=== PATIENT | female | born 1950 | race Caucasian/White ===

== ENCOUNTER → 2018-03-19 10:13 | Outpatient (CLI) | payer OTHER, SELFPAY ==
[2018-03-19 10:17] LABS: Bacteria 0 SEEN /hpf (None Seen); Mucous, Urine 0 SEEN /hpf (<or=2+)
[2018-03-19 10:18] LABS: Color, Urine Yellow (Yellow); Glucose, Dipstick Normal (Normal); Ketone-Dipstick Negative (Negative); Leukocyte Esterase-Dipstick 500 /ul (Negative); Nitrite-Dipstick Negative (Negative); Occult Blood-Urine 250 /ul (Negative); Protein-Dipstick Negative (Negative); Specific Gravity, Urine 1.005 (1.002-1.030); Urine Bilirubin Dipstick Negative (Negative); Urine Clarity Sl. Cloudy (Clear); Urine Urobilinogen Normal (Normal)
[2018-03-19 10:23] LABS: Red Blood Cells-Urine 25-50 SEEN /hpf (0-5); Squamous Epithelial Cells - UA 0-5 SEEN /hpf (5-10); White Blood Cells 25-50 SEEN /hpf (0-5)
== END ==
PROVIDERS: Referring Provider Nurse Practitioner Family; Visit Provider Nurse Practitioner Family
DX: R30.0 Dysuria (principal)
CPT/HCPCS: 81001; 87086; 87088

== ENCOUNTER → 2019-01-19 10:05 | Outpatient (CLI) | payer OTHER, SELFPAY ==
[2019-01-19 09:44] VITALS: BMI 20.5
[2019-01-19 12:35] LABS: ALB/GLOB Ratio 1.2 RATIO (0.9-2.4); AST(SGOT) 27 U/L (15-37); Alanine Aminotransfer ALT/SGPT 26 U/L (13-56); Albumin, Serum 3.7 g/dL (3.2-5.0); Alkaline Phosphatase 55 U/L (45-117); Anion Gap 0 (5-15); BUN 16 mg/dL (7-18); BUN/Creat Ratio 17.5 RATIO (10-20); Calcium,Total 9.2 mg/dL (8.5-10.1); Chloride 102 mmol/L (98-107); Cholesterol 182 mg/dL (200); Creatinine, Serum 0.92 mg/dL (0.55-1.02); EST Glomerular Filtration Rate 65 mL/min (>60); Est Glom Filt Rate - Afr Amer 79 mL/min (>60); Glucose 100 mg/dL (74-106); High Density Lipoprotein 74 mg/dL; Potassium 5.2 mmol/L (3.5-5.1); Protein, Total 6.7 g/dL (6.4-8.2); Sodium Level 137 mmol/L (136-145); Triglycerides 87 mg/dL; Very Low Density Lipoprotein 17 mg/dL (5-40)
== END ==
PROVIDERS: Visit Provider Family Medicine
DX: Z00.00 Encounter for general adult medical examination without abnormal findings (principal)
CPT/HCPCS: 36415; 80053; 80061

== ENCOUNTER → 2019-11-08 | Outpatient (CLI) | payer OTHER, SELFPAY ==
[2019-11-08 14:24] VITALS: BMI 20.5
[2019-11-08 16:20] LABS: Bacteria 0 SEEN /hpf (None Seen); Mucous, Urine 0 SEEN /hpf (<or=2+); Red Blood Cells-Urine 0 SEEN /hpf (0-5); Squamous Epithelial Cells - UA 0 SEEN /hpf (5-10)
[2019-11-08 16:47] LABS: Color, Urine Yellow (Yellow); Glucose, Dipstick Normal (Normal); Ketone-Dipstick Negative (Negative); Leukocyte Esterase-Dipstick 100 /ul (Negative); Nitrite-Dipstick Negative (Negative); Occult Blood-Urine 250 /ul (Negative); Protein-Dipstick Negative (Negative); Urine Bilirubin Dipstick Negative (Negative); Urine Clarity Sl. Cloudy (Clear); Urine Urobilinogen Normal (Normal)
[2019-11-08 16:56] LABS: White Blood Cells 0-5 SEEN /hpf (0-5)
== END | disposition home or self-care (01) ==
LOC: LABSPEC 15:52
PROVIDERS: PCP Family Medicine; Referring Provider Family Medicine; Visit Provider Family Medicine
DX: R30.0 Dysuria (principal)
CPT/HCPCS: 81001; 87086; 87088

== ENCOUNTER → 2020-01-24 08:56 | Outpatient (CLI) | payer OTHER, SELFPAY ==
[2020-01-24 08:35] VITALS: BMI 20.5
[2020-01-24 12:54] LABS: ALB/GLOB Ratio 1.2 RATIO (0.9-2.4); AST(SGOT) 25 U/L (15-37); Alanine Aminotransfer ALT/SGPT 29 U/L (13-56); Albumin, Serum 3.9 g/dL (3.2-5.0); Alkaline Phosphatase 55 U/L (45-117); Anion Gap 3 (5-15); BUN 14 mg/dL (7-18); BUN/Creat Ratio 16.1 RATIO (10-20); Calcium,Total 9.2 mg/dL (8.5-10.1); Chloride 102 mmol/L (98-107); Creatinine, Serum 0.87 mg/dL (0.55-1.02); EST Glomerular Filtration Rate 69 mL/min (>60); Est Glom Filt Rate - Afr Amer 83 mL/min (>60); Globulin 3.3 g/dL (2.2-4.2); Glucose 87 mg/dL (74-106); Potassium 4.8 mmol/L (3.5-5.1); Protein, Total 7.2 g/dL (6.4-8.2); Sodium Level 139 mmol/L (136-145)
== END ==
PROVIDERS: PCP Family Medicine; Referring Provider Family Medicine; Visit Provider Family Medicine
DX: Z00.00 Encounter for general adult medical examination without abnormal findings (principal)
CPT/HCPCS: 36415; 80053

== ENCOUNTER → 2020-03-02 | Outpatient (CLI) | payer OTHER, SELFPAY ==
[2020-03-02 10:04] VITALS: BMI 20.5
[2020-03-02 13:23] LABS: Mucous, Urine 0 SEEN /hpf (<or=2+)
[2020-03-02 13:47] LABS: Color, Urine Yellow (Yellow); Glucose, Dipstick Normal (Normal); Ketone-Dipstick Negative (Negative); Leukocyte Esterase-Dipstick 500 /ul (Negative); Nitrite-Dipstick Negative (Negative); Occult Blood-Urine 250 /ul (Negative); Protein-Dipstick 30 mg/dl (Negative); Urine Bilirubin Dipstick Negative (Negative); Urine Clarity Sl. Cloudy (Clear); Urine Urobilinogen Normal (Normal)
[2020-03-02 13:58] LABS: Bacteria 1+ /hpf (None Seen); Red Blood Cells-Urine 25-50 SEEN /hpf (0-5); Squamous Epithelial Cells - UA 0-5 SEEN /hpf (5-10); White Blood Cells 25-50 SEEN /hpf (0-5)
== END | disposition home or self-care (01) ==
LOC: LABSPEC 13:05
PROVIDERS: PCP Family Medicine; Referring Provider Physician Assistant Surgical; Visit Provider Physician Assistant Surgical
DX: R30.0 Dysuria (principal)
CPT/HCPCS: 81001; 87077; 87086; 87088; 87186

== ENCOUNTER → 2020-03-08 08:51 | Outpatient (CLI) | payer OTHER, SELFPAY ==
[2020-03-02 10:04] VITALS: BMI 20.5
[2020-03-08 12:11] LABS: Vitamin D,25 Hydroxy 45.1 ng/mL
== END ==
PROVIDERS: PCP Family Medicine; Visit Provider Family Medicine
DX: M85.80 Other specified disorders of bone density and structure, unspecified site (principal)
CPT/HCPCS: 36415; 82306

== ENCOUNTER → 2021-01-24 10:46 | Outpatient (CLI) | payer OTHER, SELFPAY ==
[2021-01-24 10:25] VITALS: BMI 20.5
[2021-01-24 12:45] LABS: ALB/GLOB Ratio 1.3 RATIO (0.9-2.4); AST(SGOT) 27 U/L (15-37); Alanine Aminotransfer ALT/SGPT 32 U/L (13-56); Albumin, Serum 4.3 g/dL (3.2-5.0); Alkaline Phosphatase 57 U/L (45-117); Anion Gap 6 (5-15); BUN 17 mg/dL (7-18); BUN/Creat Ratio 21.1 RATIO (10-20); Calcium,Total 9.7 mg/dL (8.5-10.1); Chloride 105 mmol/L (98-107); EST Glomerular Filtration Rate 75 mL/min (>60); Est Glom Filt Rate - Afr Amer 91 mL/min (>60); Globulin 3.4 g/dL (2.2-4.2); Glucose 104 mg/dL (74-106); Potassium 4.7 mmol/L (3.5-5.1); Protein, Total 7.7 g/dL (6.4-8.2); Sodium Level 142 mmol/L (136-145)
[2021-01-24 12:46] LABS: Vitamin D,25 Hydroxy 93.5 ng/mL
== END ==
PROVIDERS: PCP Family Medicine; Referring Provider Family Medicine; Visit Provider Family Medicine
DX: Z00.00 Encounter for general adult medical examination without abnormal findings (principal)
CPT/HCPCS: 36415; 80053; 82306

== ENCOUNTER → 2022-02-26 | Outpatient (CLI) | payer OTHER, SELFPAY ==
[2022-02-26 16:04] LABS: Vitamin D,25 Hydroxy 97.5 ng/mL
[2022-02-26 16:05] LABS: ALB/GLOB Ratio 1.2 RATIO (0.9-2.4); AST(SGOT) 29 U/L (15-37); Alanine Aminotransfer ALT/SGPT 31 U/L (13-56); Albumin, Serum 4.1 g/dL (3.2-5.0); Alkaline Phosphatase 58 U/L (45-117); Anion Gap 6 (5-15); BUN 23 mg/dL (7-18); Chloride 104 mmol/L (98-107); Cholesterol 232 mg/dL (200); Creatinine, Serum 0.88 mg/dL (0.55-1.02); EST Glomerular Filtration Rate 67 mL/min (>60); Est Glom Filt Rate - Afr Amer 82 mL/min (>60); Globulin 3.4 g/dL (2.2-4.2); Glucose 97 mg/dL (74-106); High Density Lipoprotein 77 mg/dL; Potassium 4.9 mmol/L (3.5-5.1); Protein, Total 7.5 g/dL (6.4-8.2); Sodium Level 140 mmol/L (136-145); Triglycerides 90 mg/dL; Very Low Density Lipoprotein 18 mg/dL (5-40)
== END | disposition home or self-care (01) ==
LOC: BIMLAB 14:30
PROVIDERS: PCP Family Medicine; Referring Provider Family Medicine; Visit Provider Family Medicine
DX: Z00.00 Encounter for general adult medical examination without abnormal findings (principal)
CPT/HCPCS: 36415; 80053; 80061; 82306

== ENCOUNTER → 2022-05-22 | Outpatient (CLI) | payer OTHER, SELFPAY ==
--- NOTE | 2022-05-22 | CYST_PTH ---
PATIENT: JACKIE NARANJO LOC: [facility] U#:[id number] AGE/SX: 71/F ROOM: RE05/22/[address]: Dr. Mack Polo DO : 1950 BED: DIS: 05/22/2022 SPEC #: [id number] RECD: 05/22/22 12:09 STATUS: KATHLEEN GELACIO #: [id number] NADIA: 05/22/22 00:[address]: Mack Polo DEPT: SURGICAL PATHOLOGY RECD BY: Ascencion Gamez Tissues: CYST Procedures: Surgery Specimen Level III HEADER OPERATION: Lesion removal from left anterior moreno PRE-OP DIAGNOSIS: Dermoid inclusion cyst TISSUE SUBMITTED: Left anterior moreno lesion MICROSCOPIC DIAGNOSIS Left anterior skin lesion, shave biopsy: Atypical squamous lesion suspicious for squamous cell carcinoma. See comment. AM:rosemarie 05/23/2022 COMMENT The lesion extends to the deep margin of excision. Complete excision of lesion is recommended for definitive classification. MICROSCOPIC DESCRIPTION Slides are reviewed. GROSS DESCRIPTION Received is one container labeled with the patient's name and not further designated. The specimen consists of a light clinton shaved biopsy of skin measuring 0.7 x 0.6 x 0.2 cm. The specimen is totally submitted in one cassette after sectioning. / AM:rosemarie 05/22/2022 TC:? CPT: 26437
== END | disposition home or self-care (01) ==
LOC: LABSPEC 10:31
PROVIDERS: PCP Family Medicine; Referring Provider Family Medicine; Visit Provider Family Medicine
DX: L72.0 Epidermal cyst (principal)
CPT/HCPCS: 88304

== ENCOUNTER 2022-07-04 07:26 | Day surgery (SDC) | payer OTHER, SELFPAY ==
--- NOTE | 2022-07-03 23:51 | HP.PCM_ITS ---
History and Physical Date of Admission: 07/04/22 HISTORY OF PRESENT ILLNESS 71 year old female presents for evaluation for TBSE.? She noticed a lesion on her left anterior leg that had increased in size over the last several months and was erythematous in color. ? She had a shave biopsy on 05/22/22 by her PCP, Dr. Polo, which showed atypical squamous lesion suspicious for squamous cell carcinoma which extends into the deep margin.? The shave biopsy site is healing without problems.? She presents today to discuss her options for treatment. PAST MEDICAL HISTORY Family history of breast cancer Family history of skin cancer Frequent UTI Menieres disease Osteopenia Squamous cell carcinoma of left lower leg PAST SURGICAL HISTORY History of breast biopsy History of colonoscopy ALLERGIES No Known Allergies MEDICATIONS Saccharomyces boulardii (Daily Probiotic (S. boulardii)) ascorbate calcium-bioflavonoid ER bone up cholecalciferol (vitamin D3) vitamin FAMILY HISTORY Father - Anesthesia complication, Heart disease, Melanoma, Diabetes, Skin cancer Mother - Arthritis, Hypertension, Osteoporosis, Thyroid disorder, Skin cancer Sister - Breast cancer, Cervical cancer Other - Family history of breast cancer, Family history of skin cancer SOCIAL HISTORY Smoking Status:? Never smoker alcohol intake:? never substance use type:? does not use REVIEW OF SYSTEMS General - Denies fever, fatigue, and weight loss. Eyes - Denies cataracts and glaucoma. ENT - Denies nasal congestion and sore throat.? Endocrine - Denies excessive thirst and urination.? Has family history of breast cancer. Skin - Has a lesion on left anterior leg that was biopsied 05/22/22 and showed atypical squamous lesion suspicious for squamous cell carcinoma which extends into the deep margin.? Has family history of skin cancer. Musculoskeletal - Denies joint pain, joint stiffness, weakness of muscles and joints, back pain, and arthritis. Has osteopenia.? Neuro - Denies headaches. Has history of Meniere's disease on 2015. Cardiovascular - Denies chest pain, fatigue, and shortness of breath with exertion. Psych - Denies anxiety and depression. Respiratory - Denies chronic cough and shortness of breath.? Gastrointestinal - Denies nausea, vomiting, diarrhea, and constipation.? Hematologic - Denies abnormal bruising and bleeding.? Genitourinary - Denies hematuria.? Has urinary frequency but states she drinks a lot. PHYSICAL EXAMINATION General - Alert and oriented. HEENT - PERRL. EOMI. Throat is clear.? No suspicious lesions noted. Neck - Supple and non-tender.? No cervical adenopathy.? No suspicious lesions noted. Lungs- Clear to auscultation.? Heart - Regular rate and rhythm.? Abdomen - Soft and non distended.? Extremities - FROM. No axillary adenopathy.? Radial pulses are palpable. No inguinal adenopathy.? Dorsalis pedis pulses are palpable.? On the left anterior leg is a healing shave biopsy site that measures 1 x 0.7 cm.? No ulceration.? Lesion is nontender.? No other suspicious lesions noted. Neuro - CN II-XII grossly intact.? Psych - Normal mood and affect.? ASSESSMENT 1.? 1 cm atypical squamous lesion suspicious for squamous cell carcinoma left anterior leg. 2.? Family history of skin cancer. PLAN Discussed with the patient that this is an atypical squamous lesion suspicious for squamous cell carcinoma.? The pathology report shows the deep margin is positive which would suggest that there is invasion which is why there is suspicion for squamous cell carcinoma.? ? Recommend operative intervention with full thickness excision of this lesion.? Generally would send it to Pathology for analysis to rule out carcinoma.? Generally, if carcinoma is present or if suspicion for carcinoma is present then further excision will be done with a margin in all directions.? Reconstruction will be with skin grafting.? If no carcinoma is seen on frozen section, then would still need a skin graft for reconstruction but not as large.? Since sometimes evidence of invasion may be present on the permanent pathology but not on the frozen section.? So my recommendation would be to treat this as an invasive squamous cell carcinoma which would necessitate a 6 mm margin in all directions.? The size of the skin graft on the leg is not as big of an inconvenience as compared to having to go back to the operating room if a smaller margin is used and the final pathology comes back as invasive cancer.? If the lesion was on the face, I would leave the wound open until the final pathology is available.? A second procedure would be necessary for re-excision for margin with reconstruction with a skin flap. Patient voiced understanding and was in agreement with this surgical plan. Surgery would be done under local anesthesia and IV sedation on an outpatient basis. Patient was informed of the risks and complications of the procedure including alternatives to surgery.? These were discussed with the patient personally.? Patient voices understanding and wishes to proceed. Some of the risks and complications were included in a form from the [employer]. Assessment & Plan Assessment/Plan (1) Squamous cell carcinoma of left lower leg: (2) Family history of skin cancer:
[2022-07-04] VITALS (7 sets, daily range): BP systolic 108–127; BP diastolic 58–68; PULSE 62–77; RESP 16–18; TEMP 36.4–37; O2SAT 94–100; BMI 20.1
--- NOTE | 2022-07-04 | LES_PTH ---
PATIENT: JACKIE NARANJO [place] [facility] [place][id number] AGE/SX: 71/F ROOM: RE07/04/[address]: Dr. Collin Crowder MD : 1950 BED: DIS: 07/04/2022 SPEC #: [id number] RECD: 07/04/22 09:42 STATUS: KATHLEEN RESammy #: [id number] NADIA: 07/04/22 00:[address]: Collin Crowder DEPT: SURGICAL PATHOLOGY RECD BY: Hiwot Sarmiento ENTERED: 07/04/22 10:52 SP TYPE: Lesion OTHR DR: Dr. Mack Polo, DO Tissues: Skin of leg, NOS Procedures: Frozen Section (charge) Surgery Specimen Level IV HEADER OPERATION: Excision atypical keratosis anterior leg with skin grafting PRE-OP DIAGNOSIS: Squamous cell carcinoma of left lower leg TISSUE SUBMITTED: Left lower leg squamous lesion suspicious, FS FROZEN SECTION DIAGNOSIS Left leg (lower) lesion, biopsy: Actinic keratosis, negative for invasive carcinoma. SJ:rosemarie 07/04/2022 MICROSCOPIC DIAGNOSIS Skin of left lower leg lesion, biopsy: Actinic change. Focal hyperkeratosis. Cicatrix with superficial chronic dermatitis. Mid dermal keratin-like material. No evidence of malignancy. See comment. AM:rosemarie 07/07/2022 COMMENT The keratin-like material may represent a foreign body. Clinical correlation is suggested. Case has been reviewed in consultation with Dr. Parsons who concurs with the above diagnosis. IDC:GUDELIA MICROSCOPIC DESCRIPTION Slides are reviewed. GROSS DESCRIPTION Received fresh for frozen section diagnosis labeled with the patient's name is a specimen designated left leg (lower) lesion. The specimen consists of a round piece of clinton-white skin measuring 1.7 x 1.5 x 0.2 cm. The specimen is oriented by a suture at 12 o?clock. The specimen is inked as follows: 12 to 3 o?clock ? black, 3 to 6 o?clock ? blue, 6 to 9 o?clock ? green, 9 to 12 o?clock ? yellow. The specimen is serially sectioned and submitted entirely for frozen section diagnosis in one cassette. / GUDELIA:rosemarie 07/04/2022 TC:5 CPT: 19667, 59185
[2022-07-04] MEDS: Lactated Ringers 1,000 ML 15 ML IV ×2 (08:14→10:30)
[2022-07-04] MEDS: Cefazolin 2 GM in 0.9% Normal Saline 100 ML IV (09:07)
[2022-07-04] MEDS: Lidocaine 1% /Epi 1:100 (20ml) 20 ML Vial (09:50)
[2022-07-04] MEDS: Mupirocin Ointment 22gm Tube 1 APPLIC (10:21)
--- NOTE | 2022-07-04 10:24 | PCM.OPRPT ---
Problems Associated Problem List Diagnoses (1) Actinic keratosis: (2) Family history of skin cancer: Report of Operation Date of Procedure: 07/04/22 Pre-Operative Diagnosis: 1. 1 cm atypical squamous lesion suspicious for squamous cell carcinoma left anterior leg. 2. Family history of skin cancer. Post-Operative Diagnosis: 1. 1 cm actinic keratosis with atypia left anterior leg. 2. Family history of skin cancer. Surgery/Procedure Performed:: Excision 1 cm actinic keratosis with atypia left anterior leg with STSG reconstruction from left flank (6.25 cm2). Description of Surgical Findings:: 71 year old female presents for evaluation for TBSE.? She noticed a lesion on her left anterior leg that had increased in size over the last several months and was erythematous in color. ? She had a shave biopsy on 05/22/22 by her PCP, Dr. Polo, which showed atypical squamous lesion suspicious for squamous cell carcinoma which extends into the deep margin.? The shave biopsy site is healing without problems.? She presents today to discuss her options for treatment. Patient was informed of the risks and complications of the procedure including alternatives to surgery. These were discussed with the patient personally. Patient voices understanding and wishes to proceed. Some of the risks and complications were included in a form from the [employer]. Frozen section left anterior leg - actinic keratosis and no carcinoma seen. Initial shave biopsy on 05/22/22 showed atypia. Size of skin graft left anterior leg - 2.5 x 2.5 cm. I used AxioFill Placental Connective Tissue Powder, (250 mg). Catalog Number - [id number]. Lot Number - [id number]. Expiration - January 20, 2027. Surgeon: Collin Crowder MD supervisor feed house: Padmini Beck RNFA Type of Anesthesia: Local MAC (xylocaine with epinephrine and IV sedation.) Anesthesiologist: Óscar Gilliam MD and Aurea Palacios CRNA Specimen's removed: Atypical squamous lesion left anterior leg to Pathology as a frozen section. Drains: None. Estimated Blood Loss (mL): 5. Description of Procedure: Patient was taken to OR in supine position and was given IV sedation. The left leg and left flank areas were prepped and draped in the usual fashion. SCD was placed on the right leg for DVT prophylaxis. Perioperative antibiotics were given intravenously. The atypical lesion left anterior leg and the left flank areas were infiltrated with xylocaine and epinephrine. After waiting 5 minutes for the anesthetic to take effect, I marked out a 6 mm margin in all directions around the atypical lesion left anterior leg because of suspicion of squamous cell carcinoma. A circular incision was made over the previous lesion shave biopsy site into the subcutaneous tissue. A suture was marked at the 12 oclock position for pathology orientation. The lesion was sent to Pathology as a frozen section for analysis to rule out carcinoma. Frozen section showed an actinic keratosis and no carcinoma seen. The initial shave biopsy on 05/22/22 showed an atypical squamous lesion suspicious for squamous cell carcinoma. The size of the wound left anterior leg to be skin grafted was 2.5 x 2.5 cm or 6.25 cm2. Using a fresh scalpel, I made an oblique elliptical incision in the left flank for the donor site for the skin graft. I removed the subcutaneous tissue from the underside of the dermis and included some of the dermis as well, thus making it a thick split thickness skin graft. The skin graft was placed on stretch and using a 15 blade, the graft was meshed. The skin graft was placed in saline. For the donor wound closure, I excised some of the central subcutaneous tissue to aid in wound closure. Hemostasis was obtained with electrocautery. The donor wound was closed in a layered fashion with 3-0 Monocryl interrupted sutures for the deep dermis and subcutaneous tissue. The skin was approximated with 4-0 V lock unidirectional barbed running subcuticular suture followed by Histoacryl skin tissue adhesive. The thick split thickness skin graft was applied to the wound left anterior leg and secured to the skin edges with 4-0 Chromic interrupted sutures. Before closing the inside graft with quilting sutures, I placed AxioFill placental connective tissue powder into the wound to help the healing process of the skin graft with the placental stem cells. I used 250 mg. I then secured the skin graft centrally with 4-0 Chromic central quilting stabilization. Antibiotic ointment was applied to the skin graft followed by Xeroform gauze and cotton ball soaked in saline and secured to the skin edge with 4-0 Nylon tie over stent suture dressing. Kerlix gauze was applied over the skin graft followed by a compression ebenezer wrap. A gauze dressing was applied to the left flank incision that can be removed in two days. The skin graft dressing will be removed in the office next week. Patient tolerated the procedure well and was sent to PACU in satisfactory condition. Patient will be sent home on antibiotics and pain medication. She will keep her left leg elevated when sitting during the initial postoperative period. Patient will followup in a week for takedown of the operative dressing and a skin graft wound check and for discussion of the pathology report. Grafts/Implants Used: AxioFill Placental Connective Tissue Powder. Procedure Start Time: 09:33 Procedure Stop Time: 10:21 Complications None. Admit VTE Documentation VTE Present on Admission: No VTE Mechan Device Prophylaxis: SCD's VTE Pharm Prophylaxis ordered?: No Addendum Addendum: Surgery Charges CPT - 38382 ICD-10 - L57.0, Z80.8 31076 L57.0, Z80.8
--- NOTE | 2022-07-04 10:48 | PCM.DC ---
Discharge Instructions Diet Discharge Diet: No restrictions Activity Discharge Activity: May Not Drive (until she is seen in the office for her postop visit on Thursday07/11/22.), May Shower (in two days. Wear plastic bag over left leg when showering. Left flank dressing can be removed and the incision can get wet in the shower in two days.) and - (patient may ambulate. Minimize standing. Elevate left leg when sitting.) May shower in (days): 2 May resume sexual activity in: No Restrictions Weight Bearing Status: Weight bearing as tolerated Keep extremity elevated above heart level: Left Leg Dressing / Incision Call your doctor if your incision/area has: Continuous Slow Oozing, Sudden Increased Bleeding, Increased Pain/ Swelling, Increased Redness, Foul Smelling Discharge and Swelling at the incision site Call your doctor if you observe: Fever of 101 or Higher, Coldness, Increased Pain, Shortness of breath, Chest pain, Calf discomfort and Uncontrolled pain Change Dressing in: do not change dressing (left leg dressing. will remove operative dressing in the office.) Remove Dressing in: 2 days (left flank dressing only.) Cleanse incision/area with: Soap & Water (can get left flank incision wet in the shower in two days. ) and Keep Dressing Clean & Dry (left leg dressing. Wear plastic bag over left leg when showering.) Follow Up Care Please Follow Up With: Collin Crowder MD When: thursday07/11/22 at 1000 am. Test Results: Test results from this visit will be discussed in further detail at your follow-up appointment, if applicable. Discharge Plan Admission Primary Reason for Your Visit: excision actinic keratosis with atypia left anterior leg Attending Provider: Collin Crowder Primary Care Provider: Mack Polo Discharge Orders/Prescriptions Prescriptions: New cefadroxil 500 mg capsule 500 mg PO BID Qty: 14 0RF oxycodone-acetaminophen [Percocet] 5-325 mg tablet 1 tab PO Q6H PRN (Reason: pain (scale score 7-10)) 7 Days Qty: 28 0RF Rx Instructions: 28 tabs (twenty-eight) Continued cholecalciferol (vitamin D3) [[id number]] 10 mcg/drop (400 unit/drop) drops 10 mcg PO DAILY bone up 1 tab PO TID Saccharomyces boulardii [Daily Probiotic (S. boulardii)] 250 mg capsule 250 mg PO DAILY ascorbic acid (vitamin C) [Vitamin C] 1,000 mg Tablet 1 g PO DAILY benzalkonium chloride Liquid 3 ml miscellaneous DAILY multivitamin Capsule 2 cap PO BID Raw Zinc 60 mg PO/SL LUNCH Referrals / Follow Up: Mack Polo DO [Primary Care Provider] - Disposition Disposition (needs filled in before D/C Order can be placed): Home, Self Care
== END 2022-07-04 12:25 | disposition home or self-care (01) ==
LOC: SDC 07:29 → AC 07:30
PROVIDERS: PCP Family Medicine; Referring Provider Surgery; Visit Provider Surgery
PROC: (CPT 15100; principal; 2022-07-04 08:45)
DX: L57.0 Actinic keratosis (principal); Z80.8 Family history of malignant neoplasm of other organs or systems
CPT/HCPCS: 15100; 11403; 00400; 88305; 88331; J7120; J2405

== ENCOUNTER → 2022-07-25 | Outpatient (CLI) | payer OTHER, SELFPAY | END | disposition home or self-care (01) | LOC: LABSPEC 10:47 | PROVIDERS: PCP Family Medicine; Visit Provider Nurse Practitioner Family | DX: T86.828 Other complications of skin graft (allograft) (autograft) (principal); L57.0 Actinic keratosis; Z80.8 Family history of malignant neoplasm of other organs or systems | CPT/HCPCS: 87070; 87075; 87077; 87186; 87205 ==

== ENCOUNTER → 2023-03-03 | Outpatient (CLI) | payer OTHER, SELFPAY ==
[2023-03-03 12:01] LABS: Absolute Lymphocyte Count 0.82 X10^3/uL (0.83-4.51); Absolute Neutrophil Count 3.3 X10^3/uL (2.0-7.7); Basophil# 0.02 X10^3/uL; Basophil% 0.4 % (0-1); Eosinophil# 0.08 X10^3/uL; Eosinophils% 1.7 % (0-5); Hematocrit 46.7 % (37-47); Hemoglobin 14.9 g/dL (12.0-15.0); Lymphocyte # 0.82 X10^3/ul (0.83-4.51); Lymphocyte % 17.9 % (19-41); Mean Corp Hgb Conc 31.9 g/dL (32-36); Mean Corpuscular Hgb 30.2 pg (27.0-32.0); Mean Corpuscular Volume 94.5 fL (81-99); Mean Platelet Vol. 10.5 fl (6.2-12.0); Monocyte# 0.34 X10^3/uL; Monocyte% 7.4 % (0-10); NRBC Flagged by Analyzer 0 % (0-5); Neutrophil # 3.31 X10^3/uL (2.7-7.7); Neutrophil % 72.4 % (47-70); Platelet Count 191 K/mm3 (150-450); RBC Distribution Width CV 11.9 % (11.6-14.6); RBC Distribution Width SD 41.1 fl (35.1-43.9); Red Blood Count 4.94 M/mm3 (4.2-5.4); White Blood Count 4.6 K/mm3 (4.4-11.0)
[2023-03-03 12:32] LABS: Vitamin D,25 Hydroxy 75.3 ng/mL
[2023-03-03 12:44] LABS: ALB/GLOB Ratio 1.3 RATIO (0.9-2.4); AST(SGOT) 29 U/L (15-37); Alanine Aminotransfer ALT/SGPT 32 U/L (13-56); Albumin, Serum 4.3 g/dL (3.2-5.0); Alkaline Phosphatase 58 U/L (45-117); Anion Gap 6 (5-15); BUN 16 mg/dL (7-18); BUN/Creat Ratio 16.5 RATIO (10-20); Calcium,Total 9.3 mg/dL (8.5-10.1); Chloride 107 mmol/L (98-107); Cholesterol 248 mg/dL (200); Creatinine, Serum 0.97 mg/dL (0.55-1.02); EST Glomerular Filtration Rate 60 mL/min (>60); Est Glom Filt Rate - Afr Amer 73 mL/min (>60); Globulin 3.3 g/dL (2.2-4.2); Glucose 101 mg/dL (74-106); High Density Lipoprotein 84 mg/dL; Potassium 3.9 mmol/L (3.5-5.1); Protein, Total 7.6 g/dL (6.4-8.2); Sodium Level 142 mmol/L (136-145); Triglycerides 88 mg/dL; Very Low Density Lipoprotein 18 mg/dL (5-40)
== END | disposition home or self-care (01) ==
LOC: BIMLAB 09:31
PROVIDERS: PCP Family Medicine; Referring Provider Family Medicine; Visit Provider Family Medicine
DX: Z00.00 Encounter for general adult medical examination without abnormal findings (principal)
CPT/HCPCS: 36415; 80053; 80061; 82306; 85025

== ENCOUNTER → 2023-08-05 | Outpatient (CLI) | payer OTHER, MEDICARE, SELFPAY ==
--- OUTSIDE RECORDS SUMMARY | 2023-08-05 08:49 | XMS RPT_ITS | CCD ---
Author Name Unknown Address [address] [place] [id number] Organization [facility] Care Team Providers Care Hot Patcher Name Role Phone PATRICK BREWER DO Primary Care Physician PATRICK BREWER DO Attending Unavailable PATRICK BREWER DO Primary Care Unavailable ANGEL GREEN, DR LOJA Attending Unavailabl e PATRICK BREWER DO Primary Care Unavailable Results Test Name Value Interpretation Reference Range Facil ity Vital Signs Date Time Vital Sign Value Performing Clinician Faci lity 05-05-2022 09:36-0500 Diastolic Blood Pressure Non-Invasive [address] FREEDOM ORTIZ MD [facility] 05-05-2022 09:36-0500 Heart rate 61 /min DR FREEDOM ORTIZ MD [facility] 05-05-2022 09:36-0500 Respiratory rate 14 /min DR FREEDOM ORTIZ MD [facility] 05-05-2022 09:36-0500 Systolic Blood Pressure Non-Invasive [address] FREEDOM ORTIZ MD [facility] 05-05-2022 09:35-0500 Diastolic Blood Pressure Non-Invasive [address] FREEDOM ORTIZ MD [facility] 05-05-2022 09:35-0500 Heart rate 62 /min DR FREEDOM ORTIZ MD [facility] 05-05-2022 09:35-0500 Respiratory rate 22 /min DR FREEDOM ORTIZ MD [facility] 05-05-2022 09:35-0500 Systolic Blood Pressure Non-Invasive [address] FREEDOM ORTIZ MD [facility] 05-05-2022 09:28-0500 Diastolic Blood Pressure Non-Invasive [address] FREEDOM ORTIZ MD [facility] 05-05-2022 09:28-0500 Heart rate 64 /min DR FREEDOM ORTIZ MD [facility] 05-05-2022 09:28-0500 Respiratory rate 15 /min DR FREEDOM ORTIZ MD [facility] 05-05-2022 09:28-0500 Systolic Blood Pressure Non-Invasive [address] FREEDOM ORTIZ MD [facility] 05-05-2022 09:20-0500 Respiratory Rate - Anes 16 br/min DR FREEDOM ORTIZ MD [facility] 05-05-2022 09:15-0500 Respiratory Rate - Anes 17 br/min DR FREEDOM ORTIZ MD [facility] 05-05-2022 09:10-0500 Respiratory Rate - Anes 15 br/min DR FREEDOM ORTIZ MD [facility] 05-05-2022 09:09-0500 Body height 165.[address] FREEDOM ORTIZ MD [facility] 05-05-2022 09:09-0500 Body weight 54.[address] FREEDOM ORTIZ MD [facility] 05-05-2022 07:58-0500 Body height 165.[address] FREEDOM ORTIZ MD [facility] 05-05-2022 07:58-0500 Body temperature 97.7 [degF] DR FREEDOM ORTIZ MD [facility] 05-05-2022 07:58-0500 diastolic 65 mm[Hg] DR FREEDOM ORTIZ MD [facility] 05-05-2022 07:58-0500 Heart rate 68 /min DR FREEDOM ORTIZ MD [facility] 05-05-2022 07:58-0500 systolic 133 mm[Hg] DR FREEDOM ORTIZ MD [facility] Encounters Encounter Date Encounter Type Care Provider Facility Start: 04-02-2023 End: 04-03-2023 ambulatory PATRICK BREWER DO Facility:[facility] Start: 04-02-2023 End: 04-02-2023 Patient encounter procedure PATRICK BREWER DO [facility] Start: 05-05-2022 End: 05-05-[address] FREEDOM ORTIZ MD Facility:[facility] Start: 05-05-2022 End: 05-05-[address] FREEDOM ORTIZ MD [facility] Start: 03-26-2022 End: 03-26-2022 Patient encounter procedure PATRICK Johnson BROWN DO [facility] Procedures Date Procedure Procedure Detail Performing Clinician Biopsy of breast DR FREEDOM ORTIZ MD Payers Date Payer Category Payer Unknown [id number] 1950 Unknown [id number] 1950 Unknown [id number] Social History Date Type Detail Facility Start: 05-05-2022 Tobacco smoking status Never s moked tobacco (finding) [facility] Sex Assigned At Sex [facility] Functional Status Date Assessment Result Facility 05-05-2022 Functional Status ID band on, Call device within reach, Bed in low position, Wheels locked, Upper/Half-Length side-rails up [facility] Clinical Notes 03-26-2022 to 05-05-2022 Note Date & Type Note Facility [facility] AD[facility]ION HISTORY AN D PHYSICIAL CHIEF COMPLAINT: HISTORY OF PRESENT ILLNESS: REVIEW OF SYSTEMS: ACTIVE PROBLEMS: No qualifying data available for Problems MEDICATIONS: Active Inpt Meds: None Active PRN Meds: None One Time Meds: None Active IV Meds: Lactated Ringers Infusion 1,000 mL (LR 1,000 mL) Start: 05/05/22 7:52:00 EST, Rate: 50 mL/hr, 05/05/22 7:52:00 EST ALLERGIES: (1) NKA FAMILY HISTORY: SOCIAL HISTORY: PHYSICAL EXAM: VITALS: EvwvnqFeqyPNBbvlwUNHgR1TPV4JmqzUt(kg) 05/05 07:[id number]/14 4.5 24 Hr Tmax: 36.5 at 05/05 07:58 36 Hr Tmax: 36.5 at 05/05 07:58 Vital Signs are the last 5 in the past 48 hours. Weights display the last 5 within 7 days. Initial Wt: 05/05 4.5 kg 10 lb Current Wt: 05/05 4.5 kg 10 lb GENERAL: HEENT: CARDIOVASCULAR: RESPIRATORY: ABDOMEN: EXREMETIES: NEUROLOGICAL: PSYCHIATRIC: LABS: No 36hr Lab Data DIAGNOSTICS: IMPRESSION: PLAN: History and Physical Update I have examined the patient; reviewed the H&P and there are no changes to the H&P unless noted below. [facility] 11-14-2022 Hospital Discharge instructions Patient Education 05/05/2022 09:29:13 Monitored Anesthesia Care, Care After Monitored Anesthesia Care, Care After These instructions provide you with information about caring for yourself after your procedure. Your health care provider may also give you more specific instructions. Your treatment has been plannedaccording to current medical practices, but problems sometimes occur. Call your health care provider if you have any problems or questions after your procedure. What can I expect after the procedure? After your procedure, you may: Feel sleepy for several hours. Feel clumsy and have poor balance for several hours. Feel forgetful about what happened after the procedure. Have poor judgment for several hours. Feel nauseous or vomit. Have a sore throat if you had a breathing tube during the procedure. Follow these instructions at home: For at least 24 hours after the procedure: Have a responsible adult stay with you. It is important to have someone help care for you until youare awake and alert. Rest as needed. Do not: ?Participate in activities in which you could fall or become injured. ?Drive. ?Use heavy machinery. ?Drink alcohol. ?Take sleeping pills or medicines that cause drowsiness. ?Make important decisions or sign legal documents. ?Take care of children on your own. Eating and drinking Follow the diet that is recommended by your health care provider. If you vomit, drink water, juice, or soup when you can drink without vomiting. Make sure you have little or no nausea before eating solid foods. General instructions Take tzkm-cwq-gsrsxpq and prescription medicines only as told by your health care provider. If you have sleep apnea, surgery and certain medicines can increase your risk for breathing problems. Follow instructions from your health care provider about wearing your sleep device: ?Anytime you are sleeping, including during daytime naps. ?While taking prescription pain medicines, sleeping medicines, or medicines that make you drowsy. If you smoke, do not smoke without supervision. Keep all follow-up visits as told by your health care provider. This is important. Contact a health care provider if: You keep feeling nauseous or you keep vomiting. You feel light-headed. You develop a rash. You have a fever. Get help right away if: You have trouble breathing. Summary For several hours after your procedure, you may feel sleepy and have poor judgment. Have a responsible adult stay with you for at least 24 hours or until you are awake and alert. This information is not intended to replace advice given to you by your health care provider. Make sure you discuss any questions you have with your health care provider. Document Released: 09/28/2016 Document Revised: 09/06/2018 Document Reviewed: 09/28/2016 [employer] Patient Education 2020 [employer] [place]. 05/05/2022 09:29:13 Colonoscopy, Adult, Care After, Pwwx-fb-Uaok Colonoscopy, Adult, Care After This sheet gives you information about how to care for yourself after your procedure. Your doctor may also give you more specific instructions. If you have problems or questions, call your doctor. What can I expect after the procedure? After the procedure, it is common to have: A small amount of blood in your poop for 24 hours. Some gas. Mild cramping or bloating in your belly. Follow these instructions at home: General instructions For the first 24 hours after the procedure: ?Do not drive or use machinery. ?Do not sign important documents. ?Do not drink alcohol. ?Do your daily activities more slowly than normal. ?Eat foods that are soft and easy to digest. Take xrmq-hxo-thxeepu or prescription medicines only as told by your doctor. To help cramping and bloating: Try walking around. Put heat on your belly (abdomen) as told by your doctor. Use a heat source that your doctor recommends, such as a moist heat pack or a heating pad. ?Put a towel between your skin and the heat source. ?Leave the heat on for 20 30 minutes. ?Remove the heat if your skin turns bright red. This is especially important if you cannot feel pain, heat, or cold. You can get burned. Eating and drinking Drink enough fluid to keep your pee (urine) clear or pale yellow. Return to your normal diet as told by your doctor. Avoid heavy or fried foods that are hard to digest. Avoid drinking alcohol for as long as told by your doctor. Contact a doctor if: You have blood in your poop (stool) 2 3 days after the procedure. Get help right away if: You have more than a small amount of blood in your poop. You see large clumps of tissue (blood clots) in your poop. Your belly is swollen. You feel sick to your stomach (nauseous). You throw up (vomit). You have a fever. You have belly pain that gets worse, and medicine does not help your pain. Summary After the procedure, it is common to have a small amount of blood in your poop. You may also have mild cramping and bloating in your belly. For the first 24 hours after the procedure, do not drive or use machinery, do not sign important documents, and do not drink alcohol. Get help right away if you have a lot of blood in your poop, feel sick to your stomach, have a fever, or have more belly pain. This information is not intended to replace advice given to you by your health care provider. Make sure you discuss any questions you have with your health care provider. Document Released: 07/11/2011 Document Revised: 04/08/2018 Document Reviewed: 03/02/2017 [employer] Patient Education 2020 [employer] [place]. Follow Up Care 04/18/2022 13:19:15 With:FREEDOM ORTIZ MD Address: [address] [facility] [address] [place] [phone] When: Unknown Comments:next colonoscopy 10 years [facility] 11-14-2022 Summary of episode note Discharge Instructions Thank you for allowing [facility] to assist you with your healthcare needs. The following is importantdischarge information regarding your hospital visit. Your Care Team PATRICK BREWER DO What to do next Follow Up Appointments Follow Up with FREEDOM ORTIZ MD When Why: next colonoscopy 10 years Where: [address] [facility] [address] [place] [phone] Allergies NKA Medications Please ask your primary doctor or pharmacist before taking any other medication not listed, including over the counter drugs, herbal medications, vitamins and or supplements as they may interact withyour home medications. Please take this list to your next doctor s visit. Bring all medications you take, including over the counter medications, herbals and other supplements with you to your doctor s visit. Patients and families are reminded to discard old lists and to update any records with all medication providers or retail pharmacies. Education Materials Monitored Anesthesia Care, Care After These instructions provide you with information about caring for yourself after your procedure. Your health care provider may also give you more specific instructions. Your treatment has been plannedaccording to current medical practices, but problems sometimes occur. Call your health care provider if you have any problems or questions after your procedure. What can I expect after the procedure? After your procedure, you may: Feel sleepy for several hours. Feel clumsy and have poor balance for several hours. Feel forgetful about what happened after the procedure. Have poor judgment for several hours. Feel nauseous or vomit. Have a sore throat if you had a breathing tube during the procedure. Follow these instructions at home: For at least 24 hours after the procedure: Have a responsible adult stay with you. It is important to have someone help care for you until youare awake and alert. Rest as needed. Do not: ? Participate in activities in which you could fall or become injured. ? Drive. ? Use heavy machinery. ? Drink alcohol. ? Take sleeping pills or medicines that cause drowsiness. ? Make important decisions or sign legal documents. ? Take care of children on your own. Eating and drinking Follow the diet that is recommended by your health care provider. If you vomit, drink water, juice, or soup when you can drink without vomiting. Make sure you have little or no nausea before eating solid foods. General instructions Take ipnd-asc-nnvpiqj and prescription medicines only as told by your health care provider. If you have sleep apnea, surgery and certain medicines can increase your risk for breathing problems. Follow instructions from your health care provider about wearing your sleep device: ? Anytime you are sleeping, including during daytime naps. ? While taking prescription pain medicines, sleeping medicines, or medicines that make you drowsy. If you smoke, do not smoke without supervision. Keep all follow-up visits as told by your health care provider. This is important. Contact a health care provider if: You keep feeling nauseous or you keep vomiting. You feel light-headed. You develop a rash. You have a fever. Get help right away if: You have trouble breathing. Summary For several hours after your procedure, you may feel sleepy and have poor judgment. Have a responsible adult stay with you for at least 24 hours or until you are awake and alert. This information is not intended to replace advice given to you by your health care provider. Make sure you discuss any questions you have with your health care provider. Document Released: 09/28/2016 Document Revised: 09/06/2018 Document Reviewed: 09/28/2016 [employer] Patient Education 2020 [employer] [place]. Colonoscopy, Adult, Care After This sheet gives you information about how to care for yourself after your procedure. Your doctor may also give you more specific instructions. If you have problems or questions, call your doctor. What can I expect after the procedure? After the procedure, it is common to have: A small amount of blood in your poop for 24 hours. Some gas. Mild cramping or bloating in your belly. Follow these instructions at home: General instructions For the first 24 hours after the procedure: ? Do not drive or use machinery. ? Do not sign important documents. ? Do not drink alcohol. ? Do your daily activities more slowly than normal. ? Eat foods that are soft and easy to digest. Take hsey-fut-swganwc or prescription medicines only as told by your doctor. To help cramping and bloating: Try walking around. Put heat on your belly (abdomen) as told by your doctor. Use a heat source that your doctor recommends, such as a moist heat pack or a heating pad. ? Put a towel between your skin and the heat source. ? Leave the heat on for 20 30 minutes. ? Remove the heat if your skin turns bright red. This is especially important if you cannot feel pain, heat, or cold. You can get burned. Eating and drinking Drink enough fluid to keep your pee (urine) clear or pale yellow. Return to your normal diet as told by your doctor. Avoid heavy or fried foods that are hard to digest. Avoid drinking alcohol for as long as told by your doctor. Contact a doctor if: You have blood in your poop (stool) 2 3 days after the procedure. Get help right away if: You have more than a small amount of blood in your poop. You see large clumps of tissue (blood clots) in your poop. Your belly is swollen. You feel sick to your stomach (nauseous). You throw up (vomit). You have a fever. You have belly pain that gets worse, and medicine does not help your pain. Summary After the procedure, it is common to have a small amount of blood in your poop. You may also have mild cramping and bloating in your belly. For the first 24 hours after the procedure, do not drive or use machinery, do not sign important documents, and do not drink alcohol. Get help right away if you have a lot of blood in your poop, feel sick to your stomach, have a fever, or have more belly pain. This information is not intended to replace advice given to you by your health care provider. Make sure you discuss any questions you have with your health care provider. Document Released: 07/11/2011 Document Revised: 04/08/2018 Document Reviewed: 03/02/2017 [employer] Patient Education 2020 [employer] Additional Information VACCINATE! IT SAVES LIVES! Members of the community who have not yet received the COVID-19 vaccine and would like to receive it can visit one of [facility] vaccine clinics. There are many vaccine clinic locations within the [facility]. For locations and available times, please visit [email or web address].[place].gov/. It is important to note that some COVID mobile vaccine clinics are held outdoors and may be canceled in rainy or stormy conditions. To learn more about pediatric vaccinations (ages 5-11), we invite you to visit the [facility] webpage. https://www.[employer].org/pages/9519-Avmzi-Guowngrpxrw-Qutphjpppd-Rzbct-Geh stions.htmlTo learn more about the COVID-19 vaccine, we invite you to visit the [employer] website for a list of frequently asked questions. [email or web address]-[email or web address]/viqzk-Uetjlpx-Zlhqxppxou _Asked-Questions.pdf [facility] Patient Portal Access Instructions: Stay connected with your healthcare team and access your personal medical information anytime with the [facility] Patient Portal.If you would like a full copy of your medical records, please contact the [facility] Medical Records Department, Thursday through Thursday between 8a.m. and 4:30p.m. Please follow the directions below to access the portal: 1.Access the email account you provided upon registration to the hospital.2.Look for an invitation email from [facility].3.Open the email and access the invitation link: Accept Invitation to [facility]4.Fill in the required wolf to create your account. Sign into www.[employer] with your username and password that you created in the above steps to stay up to date. You can then view a summary of results, a summary of your visits, and the ability to download your summaries to your computer or send the information securely to a physician. Remember that your healthcare information is confidential, so carefully consider who you will allow to register on the [facility] Patient Portal for access to your information. You can also access the [facility] Patient Portal on the [employer] jeremy. Simply click on Health Records under [employer] and then click on the [employer] logo. HOW TO SAFELY DISPOSE OF PRESCRIPTION MEDICATIONS Please use one of the following methods to safely dispose of your unused medications. 1.Use a drug disposal kit: the drug disposal pouch allows you to safely discard your old and unuseddrugs. Ask your nurse to give you one when you are discharged.2.Visit a local take-back location: Many local pharmacies and police departments have programs that collect old and unwanted prescriptiondrugs. Call your local pharmacy or go to http://[employer]/2U8Mh6d to find one close to you.3.Make use of household items: Use cat litter or old coffee grounds to dispose medications if other options arenot available. Mix your drugs with these household products, seal them in an airtight container andthrow it into the garbage. Call [facility]: [phone] to be sure your drugs can be disposed of in this way. Some medicines may require a different approach.4.Never flush your medications down the toilet. IF YOU HAVE BEEN PRESCRIBED AN OPIOID FOR PAIN If you have been prescribed an opioid (such as hydrocodone, oxycodone or morphine), it is critical to understand the possible side effects and risks of opioid pain medications. Even when taken as directed, opioids can have several side effects including: Tolerance, meaning you might need to take more of a medication for the same pain relief. Nausea, vomiting and/or constipation. Sleepiness, dizziness, dry mouth, confusion, depression or itching. Physical dependence, meaning you have withdrawal symptoms when a medication is stopped, can develop within a few days. KNOW YOUR RESPONSIBILITIES It is important to know exactly how much and how often to take the opioid pain medications you are prescribed. Never take opioids in higher amounts or more often than prescribed. Do not combine opioids with alcohol or other drugs that cause drowsiness, such as benzodiazepines, also known as benzos, including diazepam and alprazolam, muscle relaxants or sleep aids. Never sell or share prescription opioids. This is illegal. Store opioids in a secure place and out of reach of others (including children, family, friends and visitors). The last page of this document has been signed and retained as a CHART COPY. Signatures Patient Education Materials Monitored Anesthesia Care, Care After Colonoscopy, Adult, Care After, Tlko-fe-Vdkm Medication Leaflets My discharge plan and instructions have been reviewed and explained to me and I,JACKIE NARANJO understand my current condition and have read and understand these discharge instructions. I have received a written copy of the plan/instructions. If I have questions, I am aware that I should contactmy doctor. Patient/Telephone Instrument Supervisor Signature: Date/Time: Relationship to Patient: Witness Name/Signature: Date/Time: [facility]11-14-2022 Note Patient: JACKIE NARANJO Age: 71 years Sex: Female : 1950 Associated Diagnoses: None Author: GO ESTRADA APRN-MAINTENANCE ASSOCIATE Assessment Postanesthesia assessment Vitals: Vital signs from flowsheet : Vital Signs 05/05/2022 9:20 EST Heart Rate Monitored 64 bpm bpm Respiratory Rate - Anes 16 br/min br/min Systolic Blood Pressure Non-Invasive 119 mmHg mmHg Diastolic Blood Pressure Non-Invasive 71 mmHg mmHg 05/05/2022 9:15 EST Heart Rate Monitored 63 bpm bpm Respiratory Rate - Anes 17 br/min br/min Systolic Blood Pressure Non-Invasive 114 mmHg mmHg Diastolic Blood Pressure Non-Invasive 85 mmHg mmHg 05/05/2022 9:10 EST Heart Rate Monitored 63 bpm bpm Respiratory Rate - Anes 15 br/min br/min Systolic Blood Pressure Non-Invasive 137 mmHg mmHg Diastolic Blood Pressure Non-Invasive 68 mmHg mmHg 05/05/2022 9:07 EST Systolic Blood Pressure Non-Invasive 126 mmHg mmHg Diastolic Blood Pressure Non-Invasive 84 mmHg mmHg 05/05/2022 7:58 EST Temperature Temporal Artery 36.5 DegC Apical Heart Rate 68 bpm Respiratory Rate 21 br/min HI Systolic BP Left Arm 133 mmHg Diastolic BP Left Arm 65 mmHg , Measurements from flowsheet . Mental status: alert & oriented x 4. Respiratory function: respirations are non-labored. Respiratory support: none. CV function: Normal rate. Cardiovascular support: none. Pain. Nausea status: see nursing documentation of medications. Postoperative hydration status: within normal limits. Digitally Signed by GO ESTRADA on 05/05/2022 09:26 AM [facility]11-14-2022 Note Patient: JACKIE NARANJO Age: 71 years Sex: Female : 1950 Associated Diagnoses: None Author: GO ESTRADA Preoperative Information Time of last solid food intake: 05/05/2022 00:00:00 Time of last clear liquid intake: 05/05/2022 06:00:00 Anesthesia history Patient's history: negative. Family's history: negative. Health Status Allergies: Allergic Reactions (Selected) NKA, Allergies (1) ActiveReaction NKANone Documented Current medications: (Selected) Inpatient Medications Ordered LR 1,000 mL: 50 mL/hr, Intravenous, Medications (1) Active Scheduled: (0) Continuous: (1) Lactated Ringers 1,000 mL 1,000 mL, Intravenous, 50 mL/hr PRN: (0) Problem list: No qualifying data available Histories Past Medical History: No active or resolved past medical history items have been selected or recorded. Family History: No family history items have been selected or recorded. Procedure history: Biopsy of breast ([id number]). Social History Social & Psychosocial Habits Alcohol 05/05/2022 Use: Never Tobacco 05/05/2022 Tobacco Use: Never (less than 100 in l . Physical Examination Vital Signs 05/05/2022 7:58 EST Temperature Temporal Artery 36.5 DegC Apical Heart Rate 68 bpm Respiratory Rate 21 br/min HI Systolic BP Left Arm 133 mmHg Diastolic BP Left Arm 65 mmHg Vital Signs(last 24 hrs) Last Charted Resp Rate H 21br/min (MAY 05 07:58) Measurements from flowsheet : Measurements 05/05/2022 7:58 EST Height 165.1 cm Admission Weight 4.5 kg Weight Method Stated Carter Body Weight 57.00 kg Pain assessment: Pain Assessment 05/05/2022 7:58 EST Primary Pain Intensity 0 Pain Scale Type 0-10 Pain scale . General: Alert and oriented. Airway: Normal temporomandibular joint mobility, Normal mouth, Normal neck range of motion. Mallampati classification: II (soft palate, fauces, uvula visible). Dentition Evaluation: Denies loose/chipped teeth. Respiratory: Respirations are non-labored. Cardiovascular: Normal rate. Neurologic: Alert, Oriented. Review / Management Results review: No qualifying data available , Lab results 05/05/2022 9:08 EST SN - PP - Body Position Lateral Right Side-up Standard Intra-op 05/05/2022 9:08 EST SN - GCD - Post-operative Diagnosis SCREENING SN - GCD - Case Level OPD Level 3 05/05/2022 9:06 EST SN - CAt - Case Attendee SN - CAt - Case Attendee SN - CAt - Case Attendee SN - CAt - Case Attendee SN - CAt - Case Attendee SN - CAt - Case Attendee SN - CAt - Role Performed MAINTENANCE ASSOCIATE SN - CAt - Role Performed Credentialing Assistant 1 SN - CAt - Role Performed Cvt Rn 05/05/2022 9:06 EST SN - CAt - Case Attendee SN - CAt - Case Attendee SN - CAt - Role Performed Primary Surgeon 05/05/2022 9:05 EST [place] History and Physical 05/05/2022 7:58 EST Designated Person #1 We May Share LUIS rosales [phone] Designated Person #1 Relationship Son Privacy Restrictions Requested None Height 165.1 cm Admission Weight 4.5 kg Weight Method Stated Carter Body Weight 57.00 kg Temperature Temporal Artery 36.5 DegC Apical Heart Rate 68 bpm Respiratory Rate 21 br/min HI Systolic BP Left Arm 133 mmHg Diastolic BP Left Arm 65 mmHg Primary Pain Intensity 0 Pain Scale Type 0-10 Pain scale Heart Rhythm Regular Cardiac Rhythm Sinus rhythm Oxygen Therapy Room air Oxygen Saturation 98 % Status No, per patient Continuous IV Infusions lactated ringers Hand Right 22 gauge Peripheral IV Activity: Insert new site Peripheral IV Site Condition: No complications Peripheral IV Equipment: Extension set Peripheral IV Number of Attempts: 1 Sensory Deficits None Sleep Apnea Snore No Sleep Apnea Tired No Sleep Apnea Obstruction No Sleep Apnea Pressure No Sleep Apnea BMI No Sleep Apnea Age Yes Sleep Apnea Neck No Sleep Apnea Gender No Sleep Apnea Score 1 High Risk for Sleep Apnea No Diagnosed With Sleep Apnea No Advanced Directives No - refuses information Infectious Disease Symptoms Patient states no symptoms Infectious Disease Recent Exposure No Alcohol and Drug Use No Employee of Institutional Living No Health Care Employee No History of Exposure to TB No History of Positive Chest X-Ray for TB No History of Positive TB Skin Test No Homeless No Known Immunosuppression No Recent Immigrant No Resident of Institutional Living No Bloody Sputum No Fatigue No Fever No Loss of Appetite No Night Sweats No Persistent Cough > 3 Weeks No Weight Loss No Arrival Mode Ambulatory Position HOB elevated Glasses Yes Dentures N/A GI Prep Sutab GI Prep Completed Yes GI Prep Results Brown Leeann Motor (2) Moves 4 extremities voluntarily or on command Leeann Respirations (2) Spontaneous respiration without support, RR > 10 Leeann Blood Pressure (2) BP 20% above or below preanesthetic level Leeann Pulse (2) Pulse 20% above or below preanesthetic level Leeann Oxygen Saturation (2) 94% or more Leeann Level of Consciousness (2) Fully awake Leeann III Score 12 Barriers to Learning None evident Teaching Method Explanation Preferred Written Language Dominican Preferred Spoken Language Dominican Information Given by Patient Patient's Current Physicians Patient's Current Physicians Discharge To, Anticipated Home independently Standard Safety ID band on, Call device within reach, Bed in low position, Wheels locked, Upper/Half-Length side-rails up Prev Test Positive/Diagnosis w/COVID-19 No Current Quarantine/Isolated any Illness No Any Contact with Sick Animals/Birds No Traveled Anywhere in Last 30 Days No Lost Weight Unintentionally Recently No Eat Poorly Due to Decreased Appetite No Total MST Score 0 No Personal Devices, Patient Valuables None Anesthesia/Transfusions Prior anesthesia Admission Note-Nursing Same Day Patient History . Assessment and Plan [place] [employer] (ASA) physical status classification: Class I. Anesthetic Preoperative Plan Anesthetic technique: MAC. Informed consent: signed by patient. Digitally Signed by GO ESTRADA on 05/05/2022 09:10 AM [facility]11-14-2022 Note [place] [facility] ADMISSION HISTORY AND PHYSICIAL CHIEF COMPLAINT: HISTORY OF PRESENT ILLNESS: REVIEW OF SYSTEMS: ACTIVE PROBLEMS: No qualifying data available for Problems MEDICATIONS: Active Inpt Meds: None Active PRN Meds: None One Time Meds: None Active IV Meds: Lactated Ringers Infusion 1,000 mL (LR 1,000 mL) Start: 05/05/22 7:52:00 EST, Rate: 50 mL/hr, 05/05/22 7:52:00 EST ALLERGIES: (1) NKA FAMILY HISTORY: SOCIAL HISTORY: PHYSICAL EXAM: VITALS: [id number](kg) 05/05 07:[id number]/14 4.5 24 Hr Tmax: 36.5 at 05/05 07:58 36 Hr Tmax: 36.5 at 05/05 07:58 Vital Signs are the last 5 in the past 48 hours. Weights display the last 5 within 7 days. Initial Wt: 05/05 4.5 kg 10 lb Current Wt: 05/05 4.5 kg 10 lb GENERAL: HEENT: CARDIOVASCULAR: RESPIRATORY: ABDOMEN: EXREMETIES: NEUROLOGICAL: PSYCHIATRIC: LABS: No 36hr Lab Data DIAGNOSTICS: IMPRESSION: PLAN: History and Physical Update I have examined the patient; reviewed the H&P and there are no changes to the H&P unless noted below. Digitally Signed by FREEDOM ORTIZ MD on 05/05/2022 09:05 AM [facility]10-05-2022 Note ORIGINAL EXAMINATION: BONE DENSITOMETRY 03/26/2022 3:07 pm TECHNIQUE: A bone density dual x-ray absorptiometry (DEXA) scan was performed of the lumbar spine and left hip. COMPARISON: January 30, 2020. HISTORY: ORDERING SYSTEM PROVIDED HISTORY: Reason for Exam: SCREENING FINDINGS: T Score Left Femoral Neck: 0.2 Left Femoral Neck: 0.870 (g/cm2) T Score Left Hip: 0.4 Left Hip: 0.991 (g/cm2) T Score Lumbar Spine: -1.0 Lumbar Spine: 0.934 (g/cmd2) *By the World Health Organization standards: Osteopenia is present when the bone mineral density is greater than 1 standard deviation (SD) but less than 2.5 SDs below a young normal sex matched population. Osteoporosis is present when the bone mineral density is equal to or greater than 2.5 SDs below a young normal sex matched population. BMD Change from previous: No statistically significant change. IMPRESSION: Normal bone density by WHO criteria. *By the World Health Organization criteria: (Comparing with young normal sex matched population) - Normal: T-score at or above -1 SD (standard deviation) - Osteopenia: T-score between -1 and -2.5 SD - Osteoporosis: T-score at or below -2.5 SD Interpreted by: Mack Carter DO Preliminary Report By: Mack Carter DO Electronically signed By Mack Carter DO Dictated Date: 03/26/2022 3:17:32 PM Prelim Date: 03/26/2022 3:18:46 PM Sign Date: 03/26/2022 3:18:46 PM Ordering Provider: PATRICKSTEVEN BREWER [facility]10-05-2022 Note ORIGINAL EXAMINATION: BONE DENSITOMETRY 03/26/2022 3:07 pm TECHNIQUE: A bone density dual x-ray absorptiometry (DEXA) scan was performed of the lumbar spine and left hip. COMPARISON: January 30, 2020. HISTORY: ORDERING SYSTEM PROVIDED HISTORY: Reason for Exam: SCREENING FINDINGS: T Score Left Femoral Neck: 0.2 Left Femoral Neck: 0.870 (g/cm2) T Score Left Hip: 0.4 Left Hip: 0.991 (g/cm2) T Score Lumbar Spine: -1.0 Lumbar Spine: 0.934 (g/cmd2) *By the World Health Organization standards: Osteopenia is present when the bone mineral density is greater than 1 standard deviation (SD) but less than 2.5 SDs below a young normal sex matched population. Osteoporosis is present when the bone mineral density is equal to or greater than 2.5 SDs below a young normal sex matched population. BMD Change from previous: No statistically significant change. IMPRESSION: Normal bone density by WHO criteria. *By the World Health Organization criteria: (Comparing with young normal sex matched population) - Normal: T-score at or above -1 SD (standard deviation) - Osteopenia: T-score between -1 and -2.5 SD - Osteoporosis: T-score at or below -2.5 SD Interpreted by: Mack Carter DO Preliminary Report By: Mack Carter DO Electronically signed By Mack Carter DO Dictated Date: 03/26/2022 3:17:32 PM Prelim Date: 03/26/2022 3:18:46 PM Sign Date: 03/26/2022 3:18:46 PM Ordering [facility] No data available for this section [facility] Hospital Discharge instructions No data available for this section [facility] Progress note No data available for this section [facility] Summary Purpose Family History No Family History Records Found Advance Directives No Advanced Directives Records Found Additional Source Comments Care Team (unrecognized sect ion and content) Care Team Personnel Name: PATRICK BREWER DO Member Role: Primary Care Physician Address: Address: [address] Care Team Related Persons Name: JOYCELYN NARANJO Address: [address] Care Team Personnel Name: PATRICK BREWER DO Member Role: Primary Care Physician Address: Address: [address] Care Team Related Persons Name: JOYCELYN NARANJO Address: Home [address] [place] [address] Patient Care team informatio n (unrecognized section and content) Care Team Personnel Name: PATRICK BREWER DO Member Role: Primary Care Physician Address: Address: [address] Care Team Related Persons Name: JOYCELYN NARANJO Address: [address] INFORMATION SOURCE (unrecogn ized section and content) FOR RECORDS PERTAINING TO PATIENTS WHO ARE OR HAVE BEEN ENROLLED IN A CHEMICAL DEPENDENCY/SUBSTANCEABUSE PROGRAM, SOME INFORMATION MAY BE OMITTED. This clinical summary was aggregated from multiple sources. Caution should be exercised in using it in the provision of clinical care. This summary normalizes information from multiple sources, and as a consequence, information in this document may materially change the coding, format and clinical context of patient data. In addition, data may be omitted in some cases. CLINICAL DECISIONS SHOULD BE BASED ON THE PRIMARY CLINICAL RECORDS. [employer] [facility]. provides no warranty or guarantee of the accuracy or completeness of information in this document.
[2023-08-05 12:31] LABS: Absolute Neutrophil Count 3.9 X10^3/uL (2.0-7.7); Basophil# 0.02 X10^3/uL; Basophil% 0.4 % (0-1); Eosinophil# 0.18 X10^3/uL; Eosinophils% 3.4 % (0-5); Hematocrit 44.2 % (37-47); Lymphocyte % 13.4 % (19-41); Mean Corp Hgb Conc 31.7 g/dL (32-36); Mean Corpuscular Hgb 29.4 pg (27.0-32.0); Mean Corpuscular Volume 92.9 fL (81-99); Mean Platelet Vol. 10.9 fl (6.2-12.0); Monocyte% 7.7 % (0-10); NRBC Flagged by Analyzer 0 % (0-5); Neutrophil # 3.91 X10^3/uL (2.7-7.7); Neutrophil % 74.9 % (47-70); Platelet Count 174 K/mm3 (150-450); RBC Distribution Width CV 11.7 % (11.6-14.6); RBC Distribution Width SD 39.9 fl (35.1-43.9); Red Blood Count 4.76 M/mm3 (4.2-5.4); White Blood Count 5.2 K/mm3 (4.4-11.0)
[2023-08-05 12:58] LABS: ALB/GLOB Ratio 1.3 RATIO (0.9-2.4); AST(SGOT) 26 U/L (15-37); Alanine Aminotransfer ALT/SGPT 28 U/L (13-56); Alkaline Phosphatase 57 U/L (45-117); Anion Gap 4 (5-15); BUN 22 mg/dL (7-18); BUN/Creat Ratio 22.5 RATIO (10-20); Calcium,Total 9.8 mg/dL (8.5-10.1); Chloride 106 mmol/L (98-107); Creatinine, Serum 0.98 mg/dL (0.55-1.02); EST Glomerular Filtration Rate 60 mL/min (>60); Est Glom Filt Rate - Afr Amer 72 mL/min (>60); Globulin 3.1 g/dL (2.2-4.2); Glucose 98 mg/dL (74-106); Potassium 4.3 mmol/L (3.5-5.1); Protein, Total 7.1 g/dL (6.4-8.2); Sodium Level 142 mmol/L (136-145)
== END | disposition home or self-care (01) ==
LOC: BIMLAB 08:14
PROVIDERS: PCP Family Medicine; Referring Provider Family Medicine; Visit Provider Family Medicine
DX: Z01.89 Encounter for other specified special examinations (principal)
CPT/HCPCS: 36415; 80053; 85025

== ENCOUNTER → 2024-03-09 | Outpatient (CLI) | payer MEDICARE, OTHER, SELFPAY ==
[2024-03-09 12:51] LABS: Cholesterol 249 mg/dL (200); High Density Lipoprotein 83 mg/dL; Triglycerides 101 mg/dL; Very Low Density Lipoprotein 20 mg/dL (5-40)
== END | disposition home or self-care (01) ==
LOC: BIMLAB 10:55
PROVIDERS: PCP Family Medicine; Referring Provider Family Medicine; Visit Provider Family Medicine
DX: E78.5 Hyperlipidemia, unspecified (principal); M85.80 Other specified disorders of bone density and structure, unspecified site
CPT/HCPCS: 36415; 80061; 82306

== ENCOUNTER → 2024-06-23 | Outpatient (CLI) | payer MEDICARE, OTHER, SELFPAY | END | disposition home or self-care (01) | PROVIDERS: PCP Family Medicine; Referring Provider Physician Assistant Surgical; Visit Provider Physician Assistant Surgical | DX: R30.0 Dysuria (principal) | CPT/HCPCS: 87086; 87088; 87186 ==

== ENCOUNTER 2025-03-14 09:02 | Outpatient (CLI) | payer MEDICARE, OTHER, SELFPAY ==
[2025-03-14 12:50] LABS: Hematocrit 43.5 % (37-47); Hemoglobin 14.1 g/dL (12.0-15.0); Immature Granulocytes Count 0.010 X10^3/uL (0.0-0.0); Mean Corp Hgb Conc 32.4 g/dL (32-36); Mean Corpuscular Volume 94.4 fL (81-99); Mean Platelet Vol. 11.0 fl (6.2-12.0); NRBC Flagged by Analyzer 0 % (0-5); Platelet Count 188 K/mm3 (150-450); RBC Distribution Width CV 11.9 % (11.6-14.6); RBC Distribution Width SD 41.1 fl (35.1-43.9); Red Blood Count 4.61 M/mm3 (4.2-5.4); White Blood Count 5.6 K/mm3 (4.4-11.0)
[2025-03-14 13:23] LABS: Anion Gap 10 (5-15); BUN 22 mg/dL (4-19); BUN/Creat Ratio 26.0 RATIO (10-20); Calcium,Total 9.6 mg/dL (7.6-11.0); Carbon Dioxide 28.2 mmol/L (21.0-32.0); Chloride 102 mmol/L (98-108); Glucose 88 mg/dL (70-99); Potassium 5.2 mmol/L (3.3-5.1)
== END 2025-03-14 23:59 | disposition home or self-care (01) ==
LOC: BIMLAB 09:03
PROVIDERS: PCP Family Medicine; Referring Provider Family Medicine; Visit Provider Family Medicine
DX: Z00.00 Encounter for general adult medical examination without abnormal findings (principal); N39.0 Urinary tract infection, site not specified
CPT/HCPCS: 36415; 80048; 85025